=== PATIENT | female | born 1965 | race African-American/Black ===

== ENCOUNTER → 2020-01-22 | Outpatient (CLI) | payer OTHER ==
[~2020-01-22] MED LIST: AZIT250T PO; CEFD300C PO; CLOP75TA57 PO; GABA-585 PO; MECL12.573 PO; PITA4TAB2 PO
--- NOTE | 2020-01-22 16:55 | RAD ---
AP and lateral views study of both knees Clinical indications: Bilateral knee pain Right knee: No acute fracture or dislocation or lytic process is seen. No significant arthritic change is evident. No right knee joint effusion is seen. Left knee: No acute fracture or dislocation or lytic process is seen. There is mild degenerative spurring without joint space narrowing of the medial tibiofemoral joint compartment. IMPRESSION: No acute fracture. Mild primary degenerative osteoarthritis of the medial tibiofemoral joint compartment of the left knee. Electronically signed by: Garry Acosta MD (01/22/2020 4:52 PM) [id number]
== END | disposition home or self-care (01) ==
LOC: DXRAD 10:16
PROVIDERS: ATTEND Anesthesiology Pain Medicine
DX: M17.12 Unilateral primary osteoarthritis, left knee (principal); M25.762 Osteophyte, left knee; M25.561 Pain in right knee
CPT/HCPCS: 73560

== ENCOUNTER 2020-03-10 12:56 | Observation (INO) | payer MEDICAID, OTHER ==
[~2020-03-10] VITALS: Ht 174 cm; Wt 75.2 kg
[2020-03-10] MEDS ORDERED: IV NORMAL SALINE 1,000ML 1,000 ML IV ONE (13:00)
[2020-03-10] MEDS ORDERED: ASPIRIN 325 MG TABLET PO ONE (13:00)
[2020-03-10] MEDS ORDERED: ASPIRIN ENTERIC COATED 325 MG TABLET.DR. PO ONE (13:10)
[2020-03-10 13:18] LABS: BASO % 1 % (0-3); EOS # 0.1 x10^3/uL (0.0-0.7); EOS % 1 % (0-3); HEMATOCRIT 39.3 % (36.0-47.0); HEMOGLOBIN 12.8 g/dL (12.0-15.5); LYMPH % 39 % (24-48); MEAN CORPUSCULAR HEMOGLOBIN 26 pg (25-35); MEAN CORPUSCULAR HGB CONC 33 g/dL (31-37); MEAN CORPUSCULAR VOLUME 81 fL (79-100); MONO # 0.4 x10^3/uL (0.0-1.1); MONO % 6 % (0-9); NEUT # 4.2 x10^3uL (1.8-7.7); NEUT % 54 % (31-73); PLATELET COUNT 324 x10^3/uL (140-400); RED BLOOD COUNT 4.86 x10^6/uL (3.50-5.40); RED CELL DISTRIBUTION WIDTH 14.8 % (11.5-14.5); WHITE BLOOD COUNT 7.7 x10^3/uL (4.0-11.0)
--- NOTE | 2020-03-10 13:25 | PHYS DOC ---
Past History Past Medical History: Anxiety, Depression, High Cholesterol, AZ, Seizure, Stroke Additional Past Medical Histor: PTSD Past Surgical History: No Surgical History Smoking: Quit Less Than 1 Year Alcohol Use: Occasionally (1 beer can/day) Drug Use: Marijuana General Adult EDM: Chief Complaint: CHEST PAIN HPI: HPI: Patient is a 54-year-old female with a history of AZ, stroke, seizures, hypertension, anxiety, and PTSD who presents to the emergency room with chest heaviness that started 30 minutes prior to arrival. The heaviness worsens with deep inspiration and is relieved at rest. Patient states that she was sitting down at the time it started and that it felt similar to her heart attack that occurred this past November. She reports to having dizziness, weakness, and shortness of breath but she denies having any nausea or vomiting. Patient denies having any lower extremity edema or pain. She denies any recent trauma, surgery, or hormonal replacement therapy. Review of Systems: Review of Systems: Constitutional: Denies fever or chills Eyes: Denies change in visual acuity, redness, or eye pain HENT: Denies nasal congestion or sore throat Respiratory: Denies cough; reports shortness of breath Cardiovascular: Reports chest pain; denies palpitations GI: Denies abdominal pain, nausea, vomiting, or diarrhea : Denies dysuria or hematuria Musculoskeletal: Denies back pain or joint pain Integument: Denies rash or skin lesions Neurologic: Denies headache, focal weakness or sensory changes; reports dizzine ss Complete systems were reviewed and found to be within normal limits, except as documented in this note. Heart Score: HEART Score for Chest Pain: HEART Score for Chest Pain Response (Comments) Value History Moderately Suspicious 1 ECG Normal 0 Age >45 - < 65 1 Risk Factors >3 Risk Factors or Hx CAD 2 Troponin < Normal Limit 0 Total 4 Risk Factors: Risk Factors: DM, Current or recent (<one month) smoker, HTN, HLP, family history of CAD, obesity. Risk Scores: Score 0 - 3: 2.5% MACE over next 6 weeks - Discharge Home Score 4 - 6: 20.3% MACE over next 6 weeks - Admit for Clinical Observation Score 7 - 10: 72.7% MACE over next 6 weeks - Early Invasive Strategies Current Medications: Current Meds: Current Medications Medications (Trade) Dose Ordered Sig/Eve Start Time Stop Time Status Last Admin Dose Admin Aspirin (Aspirin Enteric Coated) 325 mg STK-MED ONCE 03/10/20 13:10 03/10/20 13:10 DC Aspirin (Trevor Aspirin) 325 mg 1X ONCE 03/10/20 13:00 03/10/20 13:01 UNV Sodium Chloride 1,000 ml @ 1,000 mls/hr 1X ONCE 03/10/20 13:00 03/10/20 13:59 UNV Physical Exam: PE: Constitutional: Well developed, well nourished, tearful, mildly anxious, non- toxic appearance HENT: Normocephalic, atraumatic Eyes: PERRL, EOMI, conjunctiva normal, no discharge Neck: Normal range of motion, no tenderness, supple Lungs & Thorax: No respiratory distress, equal chest rise and fall Abdomen: Soft, mild tenderness to deep palpation of the left upper and lower quadrants Skin: Warm, dry, no erythema, no rash Back: No tenderness, no CVA tenderness Extremities: No tenderness, ROM intact, no edema Neurologic: Alert and oriented X 3, normal motor function, normal sensory fu nction, no focal deficits noted Psychologic: Affect normal, judgment normal EKG: EKG: EKG at 1253 is normal sinus rhythm with a heart rate of 85, QRS 74, QTc 436, and no ST elevations. Radiology/Procedures: Radiology/Procedures: PROCEDURE: CHEST AP ONLY CHEST AP ONLY History: Chest pain Comparison: None. Findings: Single view of the chest is submitted. Cardiac silhouette is considered within normal limits given technique. There is no dependent pleural fluid or pneumothorax. There is questionable left infrahilar opacity otherwise difficult characterize given the overlying cardiac silhouette. Small nodule at the right lung base is not excluded as seen between the right posterior ninth and 10th ribs. Impression: 1. There could be left infrahilar infiltrate. Small right base nodule is not excluded for which attention on 2 view chest follow-up such as in [address] evaluation recommended. Electronically signed by: Davion Barksdale MD (03/10/2020 2:49 PM) [id number] Course & Med Decision Making: Course & Med Decision Making Pertinent Labs and Imaging studies reviewed. (See chart for details) Patient is a 54-year-old female who presents the emergency room with chest heaviness. Patient's labs are within normal limits and her vitals remained stable throughout her entire stay. Patient was not PERC negative due to her age. D-dimer was ordered which came back negative. Chest x-ray revealed a p ossible left infrahilar infiltrate and a small base nodule could not be excluded. HEART score was 4. Due to her history of AZ and stroke, patient requiring observation admission for further evaluation and treatment. Discussed with Dr. Singh (hospitalist) who is in agreement with admission. Discussed findings and plan with patient, who acknowledges understanding and agreement. Dragon Disclaimer: Dragon Disclaimer: This electronic medical record was generated, in whole or in part, using a voice recognition dictation system. PERC Rule for PE PERC Rule for PE Response (Comments) Value Age > 50: Yes 1 HR > 100: No 0 Sa02 on room air <95%: No 0 Unilateral leg swelling: No 0 Hemoptysis: No 0 Recent surgery or trauma: No 0 Prior PE or DVT: No 0 Hormone use: No 0 Total 1 Departure Departure: Impression: Primary Impression: Chest pain Qualified Codes: R07.9 - Chest pain, unspecified Disposition: ADMITTED INPATIENT Admitting Physician: Alvin Singh Condition: STABLE Referrals: SHAHID SUÁREZ (PCP) Scripts Azithromycin (ZITHROMAX) 250 Mg Tablet 250 MG PO DAILY for ANTI-BIOTIC for 4 Days, #4 TAB 0 Refills Prov: ALVIN SINGH MD 03/11/20 Cefdinir (CEFDINIR) 300 Mg Capsule 1 CAP PO BID for PNEUMONIA for 7 Days, #14 CAP Prov: ALVIN SINGH MD 03/11/20 Justification of Admission: Justification of Admission: Justification of Admission Dx: Yes Comments: Chest pain r/o ACS EVELYN QUEZADA DO Mar 10, 2020 13:25
[2020-03-10 13:32] LABS: CALCIUM 10.6 mg/dL (8.5-10.1); GFR 70.5
[2020-03-10 13:46] LABS: ALBUMIN 4.7 g/dL (3.4-5.0); ALBUMIN/GLOBULIN RATIO 1.3 (1.0-1.7); MAGNESIUM 2.1 mg/dL (1.8-2.4); TOTAL BILIRUBIN 0.7 mg/dL (0.2-1.0); TOTAL PROTEIN 8.4 g/dL (6.4-8.2)
--- NOTE | 2020-03-10 14:51 | RAD ---
CHEST AP ONLY History: Chest pain Comparison: None. Findings: Single view of the chest is submitted. Cardiac silhouette is considered within normal limits given technique. There is no dependent pleural fluid or pneumothorax. There is questionable left infrahilar opacity otherwise difficult characterize given the overlying cardiac silhouette. Small nodule at the right lung base is not excluded as seen between the right posterior ninth and 10th ribs. Impression: 1. There could be left infrahilar infiltrate. Small right base nodule is not excluded for which attention on 2 view chest follow-up such as in [address] evaluation recommended. Electronically signed by: Davion Barksdale MD (03/10/2020 2:49 PM) [id number]
[2020-03-10] MEDS ORDERED: HEPARIN 25,000UTS/250ML PREMIX 250 ML IV PRN (15:15)
[2020-03-10] MEDS ORDERED: ONDANSETRON PF 4 MG/2 ML VIAL. IVP PRN (15:30)
[2020-03-10 16:10] VITALS: BP 131/87
--- NOTE | 2020-03-10 17:38 | EKG ---
[address] [address] Test Date: 2020-03-10 Test Time: 12:53:02 Pat Name: NUHA ODONNELL Department: Room: 121 A Gender: F Scale Tester: TIRSO : 1965 Requested By: EVELYN QUEZADA Order Number: [id number] Reading MD: Andi Howard Measurements Intervals [place] Rate: 85 P: 47 AK: 158 QRS: 24 QRSD: 74 T: 29 QT: 366 QTc: 436 Interpretive Statements SINUS RHYTHM NORMAL ECG RI6.02 No previous ECG available for comparison Electronically Signed On 03-17-2020 13:00:15 CDT by Andi Howard
--- NOTE | 2020-03-10 17:48 | NUR ---
PATIENT IS A 54 Y O F, ARRIVED VIA EMS TO ROOM 121 , VS OBTAINED AND ARE STABLE. PT C/O CHEST PAIN AND WEAKNESS, PATIENT DENIED N/V. PATIENT WAS ORIENTED TO ROOM AND HOSPITAL POLICIES, BELONGINGS INVENTORIED. PATIENT IS CURRENTLY COMFORTABLE IN A BED , MEAL DELIVERED, PATIENT TOLERATED HER DIET WELL. WILL CONTINUE TO MONITOR.
--- NOTE | 2020-03-10 17:59 | NUR ---
CONSULT FOR SAMPLES AND REPAIRS PREPARER CALLED.
[2020-03-10] MEDS ORDERED: AZITHROMYCIN 250 MG TABLET. PO ONE (18:00)
--- NOTE | 2020-03-10 18:20 | HP ---
ADMIT DATE: 03/10/2020 HISTORY OF PRESENT ILLNESS: The patient is a 54-year-old -Russian female patient, who came to the Emergency Room complaining of retrosternal chest pain, described as somebody sitting on her chest, it started about 30 minutes prior to arrival. The heaviness worsens with deep inspiration, is relieved with rest. She stated she was sitting down at that time it started. This felt similar to her heart attack that occurred about last November. She also started having dizziness, weakness, and shortness of breath and also diaphoresis. Denied any nausea or vomiting. Denied having any lower extremity edema or pain. Denied any recent trauma or surgery. She was extensively investigated and in fact her white cell count was normal. Chemistry was mostly unremarkable and her D-dimer was 0.33. She has had EKG done, which showed that she was in sinus rhythm with a heart rate of 85 beats per minute with the QRS duration of 74, corrected QT interval of [address] segment elevation. Her chest x-ray showed there could be a left infrahilar infiltrate, small right base nodule is not excluded for which attention on 2-view chest follow up such as in [address] evaluation is recommended. Her first set of cardiac enzymes showed troponin to be less than 0.017 and therefore, the patient was admitted to do 2 more sets of cardiac enzyme, check her fasting lipid profile and consult the supervisor aircraft cleaning. PAST MEDICAL HISTORY: Significant for cerebrovascular accident and seizure disorder. She has also claimed that she has myocardial infarction, hyperlipidemia, posttraumatic stress disorder and depression. PAST SURGICAL HISTORY: Not clear, but it seems that she has mitral valve replacement or mitral valve annuloplasty. She also has total abdominal hysterectomy without oophorectomy. ALLERGIES: She has no known drug allergies. MEDICATIONS: She is currently on gabapentin 300 mg 3 times a day, meclizine 25 mg 3 times a day. She is on Cymbalta 30 mg once a day. She is on Plavix 75 mg once a day and aspirin 81 mg once a day. She takes also allergy pill. FAMILY HISTORY: She has 4 brothers and 3 sisters. Her younger brother has diabetes mellitus and her older sister of cancer, but does not know the nature of cancer. The other 2 sisters are healthy. Her father in his 70s with COPD and glaucoma. Mother in her late 60s one-week after she has had her cholecystectomy done. SOCIAL HISTORY: She is , has 4 children. She is an ex-smoker, quit a year ago. She smoked weed. She drinks beer a day. 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 REVIEW OF SYSTEMS: As per history of present illness. PHYSICAL EXAMINATION: GENERAL: On arrival to the Emergency Room, she looked well and was clearly in no apparent respiratory distress. No pallor, jaundice, cyanosis or thyromegaly. No jugular venous distention. No limb edema. VITAL SIGNS: Her heart rate was 98, blood pressure was 166/96, temperature was 98.3, respiratory rate was 24, and oxygen saturation was 98% on room air. HEAD, EYES, EARS, NOSE AND THROAT: Showed normocephalic, atraumatic. NECK: Supple. CARDIAC: Normal first and second heart sounds. No gallop or murmur. CHEST: Clear to auscultation. No crepitation or rhonchi. ABDOMEN: Distended, soft, nontender. NEUROLOGIC: She is awake, alert, responding appropriately. All cranial nerves are intact. She stated that she does have residual weakness in the right side. She usually ambulates with a cane. LABORATORY DATA: Her white cell count was 7700, hemoglobin 12.8, hematocrit 39, MCV 81 and platelet count 324,000. Serum sodium was 139, potassium 4, chloride 103, bicarbonate 22, anion gap of 14, BUN 12, creatinine 1, estimated GFR was 70 mL per minute. Her glucose 115, calcium was high at 10.6, magnesium was 2.1. Total bilirubin, AST, ALT, alkaline phosphatase were normal. Total protein was 8.4, albumin was 4.7. Lipase was 81. First set of cardiac enzymes showed troponin to be less than 0.017. In summary, this is a 54-year-old -Russian female patient, who came in with chest pain, somewhat atypical. She does have risk factors including that she is an ex-smoker, she has hyperlipidemia and she has had a stroke before. My plan is to do 2 more sets of cardiac enzyme and check her fasting lipid profile tomorrow and also consult the Cardiology team for further evaluation and treatment. As far as her chest x-ray, it did show that there is a possibility of infiltrate and I will start her on IV antibiotic for possible healthcare-associated pneumonia and we will decide on further management accordingly. KODAK IVORY MD DR: JUAN/isabella JOB#: [id number] / [id number]
[2020-03-10 20:43] VITALS: BP 116/77
[2020-03-10] MEDS ORDERED: FLU VACC QS 2020-21(6MOS+)/PF 0.5 ML SYRINGE. VAX IM ONE (21:00)
[2020-03-10 22:26] VITALS: BP 112/75
[2020-03-10 22:45] LABS: BILIRUBIN,URINE NEG (NEG); CLARITY,URINE CLEAR; COLOR,URINE YELLOW; GLUCOSE,URINE NEG (NEG)
[2020-03-10 22:46] LABS: NITRITE,URINE NEG (NEG); UROBILINOGEN,URINE 0.2 mg/dL (0.2 mg/dL)
[2020-03-10 22:48] LABS: BACTERIA,URINE 0 /HPF (0-FEW); RBC,URINE RARE /HPF (0-2); WBC,URINE RARE /HPF (0-4)
[2020-03-11 05:06] VITALS: BP 125/84
--- NOTE | 2020-03-11 08:25 | PDOC2 ---
CARDIAC CONSULT DATE OF CONSULT DOS: DATE: 03/11/20 TIME: 08:19 REASON FOR CONSULT Reason for Consult Chest pain REFERRING PHYSICIAN Referring Physician Dr. Ledesma SOURCE Source: Chart review, Patient HPI History of Present Illness This is a 54 yo female who presented secondary to chest pain. Patient reports she just didn't feel well yesterday. Was weak, tired. Had cramping pain in her chest. [place] slightly SOA. Was worse with any movement. No dizziness, diap horesis, palpitations, or nausea/vomiting. Report having "open valve" and underwent "valve closure procedure" at age 17. 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 No recent cardiac workup. Reports having Seizure, stroke, and PA last November. Was treaded at [facility]. Did not undergo ischemic evaluation at that time. PAST MEDICAL HISTORY Cardiovascular: HTN, PA CENTRAL NERVOUS SYSTEM: CVA, Seizure Psych: Depression PAST SURGICAL HISTORY Past Surgical History: Hysterectomy, Other (heart surgery; "valve closure" at age 17. details unclear ) FAMILY HISTORY Family History: Diabetes, Hypertension SOCIAL HISTORY Smoke: Quit (1 year ago) ALCOHOL: none Drugs: Marijuana Lives: with Family CURRENT MEDICATIONS Current Medications Current Medications Aspirin (Trevor Aspirin) 325 mg 1X ONCE PO Last administered on 03/10/20at 13:00; Start 03/10/20 at 13:00; Stop 03/10/20 at 13:17; Status DC Sodium Chloride 1,000 ml @ 1,000 mls/hr 1X ONCE IV Last administered on 03/10/20at 13:00; Start 03/10/20 at 13:00; Stop 03/10/20 at 13:59; Status DC Aspirin (Aspirin Enteric Coated) 325 mg STK-MED ONCE PO ; Start 03/10/20 at 13:10; Stop 03/10/20 at 13:10; Status DC Heparin Sodium/ Dextrose 250 ml @ 0 mls/hr CONT PRN IV SEE ADMIN INSTRUCTIONS; Start 03/10/20 at 15:15; Status Cancel Ondansetron HCl (Zofran) 4 mg PRN Q4HRS PRN IVP NAUSEA/VOMITING; Start 03/10/20 at 15:30; Stop 03/11/20 at 15:29 Fentanyl Citrate (Fentanyl 2ml Vial) 50 mcg PRN Q2HR PRN IVP PAIN Last administered on 03/10/20at 22:28; Start 03/10/20 at 15:30; Stop 03/11/20 at 15:29 Influenza Virus Vaccine Quadrival (Fluzone Quad Syringe) 0.5 ml ONCE ONCE VAX IM ; Start 03/10/20 at 21:00; Stop 03/10/20 at 21:04; Status DC Ceftriaxone Sodium 1 gm/ Sodium Chloride 50 ml @ 100 mls/hr Q24H IV Last administered on 03/10/20at 18:30; Start 03/10/20 at 18:00 Azithromycin (Zithromax) 500 mg 1X ONCE PO Last administered on 03/10/20at 18:31; Start 03/10/20 at 18:00; Stop 03/10/20 at 18:02; Status DC Influenza Virus Vaccine Quadrival (Fluzone Quad Syringe) 0.5 ml ONCE ONCE VAX IM ; Start 03/11/20 at 09:00; Stop 03/11/20 at 09:01 ALLERGIES Allergies: Coded Allergies: No Known Drug Allergies (Unverified , 03/10/20) ROS Review of Systems 14 point ROS conducted with pertinent positives noted above in HPI PHYSICAL EXAM General: Alert, Oriented X3, Cooperative, No acute distress HEENT: Atraumatic, Mucous membr. moist/pink Lungs: Clear to auscultation Heart: Regular rate Abdomen: Soft, No tenderness Extremities: No edema, Normal pulses Skin: No breakdown Neuro: Normal speech, Sensation intact Psych/Mental Status: Mental status NL, Mood NL MUSCULOSKELETAL: Osteoarthritic changes both hands VITALS Vital Signs Vital Signs Date Time Temp Pulse Resp B/P (MAP) Pulse Ox O2 Delivery O2 Flow Rate FiO2 03/11/20 05:06 99.0 83 20 125/84 (98) 97 Room Air LABS LABS Laboratory Tests Test 03/10/20 13:00 03/10/20 18:24 03/10/20 21:28 03/10/20 22:30 White Blood Count 7.7 x10^3/uL (4.0-11.0) Red Blood Count 4.86 x10^6/uL (3.50-5.40) Hemoglobin 12.8 g/dL (12.0-15.5) Hematocrit 39.3 % (36.0-47.0) Mean Corpuscular Volume 81 fL (79-100) Mean Corpuscular Hemoglobin 26 pg (25-35) Mean Corpuscular Hemoglobin Concent 33 g/dL (31-37) Red Cell Distribution Width 14.8 % (11.5-14.5) Platelet Count 324 x10^3/uL (140-400) Neutrophils (%) (Auto) 54 % (31-73) Lymphocytes (%) (Auto) 39 % (24-48) Monocytes (%) (Auto) 6 % (0-9) Eosinophils (%) (Auto) 1 % (0-3) Basophils (%) (Auto) 1 % (0-3) Neutrophils # (Auto) 4.2 x10^3uL (1.8-7.7) Lymphocytes # (Auto) 3.0 x10^3/uL (1.0-4.8) Monocytes # (Auto) 0.4 x10^3/uL (0.0-1.1) Eosinophils # (Auto) 0.1 x10^3/uL (0.0-0.7) Basophils # (Auto) 0.0 x10^3/uL (0.0-0.2) Prothrombin Time 10.0 SEC (9.4-11.4) Prothromb Time International Ratio 1.0 (0.9-1.1) Activated Partial Thromboplast Time < 21 SEC (23-33) D-Dimer (Rosalia) 0.33 mg/L (0.00-0.50) Sodium Level 139 mmol/L (136-145) Potassium Level 4.0 mmol/L (3.5-5.1) Chloride Level 103 mmol/L (98-107) Carbon Dioxide Level 22 mmol/L (21-32) Anion Gap 14 (6-14) Blood Urea Nitrogen 12 mg/dL (7-20) Creatinine 1.0 mg/dL (0.6-1.0) Estimated GFR (Cockcroft-Gault) 70.5 BUN/Creatinine Ratio 12 (6-20) Glucose Level 115 mg/dL (70-99) Calcium Level 10.6 mg/dL (8.5-10.1) Magnesium Level 2.1 mg/dL (1.8-2.4) Total Bilirubin 0.7 mg/dL (0.2-1.0) Aspartate Amino Transf (AST/SGOT) 16 U/L (15-37) Alanine Aminotransferase (ALT/SGPT) 27 U/L (14-59) Alkaline Phosphatase 99 U/L (46-116) Creatine Kinase 265 U/L (26-192) Creatine Kinase MB (Mass) 1.5 ng/mL (0.0-3.6) Creatine Kinase MB Relative Index 0.6 % (0-4) Troponin I Quantitative < 0.017 ng/mL (0-0.055) < 0.017 ng/mL (0-0.055) < 0.017 ng/mL (0-0.055) WG-Chm-Z-Type Natriuretic Peptide 25 pg/mL (0-124) Total Protein 8.4 g/dL (6.4-8.2) Albumin 4.7 g/dL (3.4-5.0) Albumin/Globulin Ratio 1.3 (1.0-1.7) Lipase 81 U/L (73-393) Urine Collection Type Unknown Urine Color Yellow Urine Clarity Clear Urine pH 5.5 Urine Specific [place] 1.025 Urine Protein Neg (NEG-TRACE) Urine Glucose (UA) Neg mg/dL (NEG) Urine Ketones (Stick) Neg mg/dL (NEG) Urine Blood Trace (NEG) Urine Nitrite Neg (NEG) Urine Bilirubin Neg (NEG) Urine Urobilinogen Dipstick 0.2 mg/dL (0.2 mg/dL) Urine Leukocyte Esterase Neg (NEG) Urine RBC Rare /HPF (0-2) Urine WBC Rare /HPF (0-4) Urine Bacteria 0 /HPF (0-FEW) ASSESSMENT/PLAN Assessment/Plan 1. Chest pain, atypical; AMI ruled out. 2. Hypertension; controlled 3. H/o CVA, seizure 4. Depression, anxiety 5. Tobaccoism; in remission 6. Marijuana use Recommendations Lipids Continue Plavix, statin therapy Outpatient echocardiogram Given risk factors, will arranged outpatient stress test F/u in our office with Dr. Hager as scheduled. PARTH STRONG APRN Mar 11, 2020 08:25
[2020-03-11] MEDS ORDERED: FLU VACC QS 2020-21(6MOS+)/PF 0.5 ML SYRINGE. VAX IM ONE (09:00)
[2020-03-11] MEDS ORDERED: MECL12.573 PO (09:56)
[2020-03-11] MEDS ORDERED: PITA4TAB2 PO (10:00)
[2020-03-11] MEDS ORDERED: GABA-585 PO (10:00)
[2020-03-11] MEDS ORDERED: CLOP75TA57 PO (10:00)
[2020-03-11] MEDS ORDERED: GABAPENTIN 100 MG CAPSULE. PO SCH (10:20)
[2020-03-11] MEDS ORDERED: MECLIZINE 12.5 MG TABLET. PO SCH (10:20)
[2020-03-11] MEDS ORDERED: CLOPIDOGREL BISULFATE 75 MG TABLET PO SCH (10:25)
[2020-03-11] MEDS ORDERED: PITAVASTATIN CALCIUM PO SCH (10:30)
[2020-03-11 11:20] VITALS: BP 113/73
[2020-03-11] MEDS ORDERED: CEFD300C PO (14:25)
[2020-03-11] MEDS ORDERED: AZIT250T PO (14:25)
[2020-03-11 15:30] VITALS: BP 118/81
--- NOTE | 2020-03-11 15:35 | NUR ---
PATIENT IS DISCHARGED HOME, DISCHARGE INSTRUCTION AND PRESCRIBED MEDICATIONS RESEWED WITH PATIENT , PT VERBALIZED UNDERSTANDING. PATIENT LEFT ROOM 121 VIA W/C . PATIENT IS TAKEN HOME BY FAMILY MEMBER VIA PERSONAL VEHICLE.
--- NOTE | 2020-03-11 15:55 | DS ---
DATE OF DISCHARGE: HOSPITAL COURSE: The patient is a 54-year-old -[place] female patient who came complaining of chest pain that is fairly atypical, described it as heaviness, worsens with deep inspiration, relieved by rest. She was basically evaluated in the Emergency Room, had EKG, which showed that she was in sinus rhythm at a rate of 85 beats per minute, QRS duration of 74. Her first set of cardiac enzyme was less than 0.017. She was admitted and had a total of 3 sets of cardiac enzyme, all of them showed troponin to be less than 0.017. She was seen in consultation by the cardiology team and basically as the myocardial infarction was ruled out, she was discharged home to follow with the cardiology team for an outpatient echocardiogram as well as outpatient stress test. On admission, she was also noted on the chest x-ray that she has also left infrahilar infiltrate and therefore I did start her on IV antibiotic in the form of Rocephin and Zithromax. PHYSICAL EXAMINATION: GENERAL: When I saw her today, she looked well and was clearly in no apparent respiratory distress. She was slightly pale. No jaundice, cyanosis, or thyromegaly. No jugular venous distention. No limb edema. VITAL SIGNS: Her heart rate was 82, blood pressure was 113/73, temperature was 99.1, respiratory rate was 20, and oxygen saturation was 93%. The rest of clinical exam is stable. LABORATORY DATA: Showed that her 3 sets of cardiac enzymes were negative and acute myocardial infarctions ruled out. DISCHARGE MEDICATIONS: She was discharged home to continue on Zithromax 250 mg once a day for 4 more days and cefdinir 300 mg twice a day for 7 days, Plavix 75 mg once a day, gabapentin 100 mg 3 times a day, meclizine 12.5 mg 3 times a day, and Livalo 4 mg daily. She was also given a prescription for hydrocodone 5/325 one tablet every 6 hours. FOLLOWUP: The patient should follow with Dr. Hager's office for outpatient echocardiogram and also outpatient stress test. FINAL DISCHARGE DIAGNOSES: Hypertension, cerebrovascular accident, seizure disorder, and depression. KODAK IVORY MD DR: JUAN/isabella JOB#: [id number] / [id number]
== END 2020-03-11 15:30 | disposition home or self-care (01) ==
LOC: ER 12:56 → 1 SOUTH 15:15
PROVIDERS: ADMIT Internal Medicine; ATTEND Internal Medicine
DX: R07.89 Other chest pain (principal); R56.9 Unspecified convulsions; I25.2 Old myocardial infarction; E78.5 Hyperlipidemia, unspecified; F41.9 Anxiety disorder, unspecified; E78.00 Pure hypercholesterolemia, unspecified; F32.9 Major depressive disorder, single episode, unspecified; F12.90 Cannabis use, unspecified, uncomplicated; F43.10 Post-traumatic stress disorder, unspecified; Z86.73 Personal history of transient ischemic attack (TIA), and cerebral infarction without residual deficits; Z90.710 Acquired absence of both cervix and uterus; Z79.02 Long term (current) use of antithrombotics/antiplatelets; Z79.82 Long term (current) use of aspirin; Z87.891 Personal history of nicotine dependence
CPT/HCPCS: 36415; 71045; 80053; 80061; 81001; 82553; 83690; 83735; 83880; 84484; 85025; 85379; 85610; 85730; 93005; 96361; 96365; 96366; 96375; 96376; 99285; G0378; J0456; J0696; J3010; J7030; J8597; G0379

== ENCOUNTER → 2020-04-20 | Outpatient (CLI) | payer MEDICAID ==
[2020-04-20] MEDS: REGADENOSON 0.4 MG/5 ML DISP.SYRIN. IV ONE (08:15)
--- NOTE | 2020-04-20 15:37 | CARD ---
MR#: [id number] Date of Study: 04/20/2020 Ordering Physician: SEE SALDANA, Referring Physician: SEE SALDANA, Tech: Yudy Singer APPROVED REPORT EXAM: Two-dimensional and M-mode echocardiogram with Doppler and color Doppler. Other Information Quality : AverageHR: 89bpm INDICATION Murmur RISK FACTORS Hyperlipidemia previous smoker 2D DIMENSIONS RVDd3.7 (2.9-3.5cm)Left Atrium(2D)3.0 (1.6-4.0cm) IVSd1.3 (0.7-1.1cm)Aortic Root(2D)3.2 (2.0-3.7cm) LVDd4.5 (3.9-5.9cm)LVOT Diameter1.9 (1.8-2.4cm) PWd0.9 (0.7-1.1cm)LVDs2.7 (2.5-4.0cm) FS (%) 39.9 %SV66.9 ml Aortic Valve AoV Peak Ben.125.0cm/sAoV VTI24.2cm AO Peak GR.6.2mmHgLVOT Peak Ben.93.7cm/s LVOT VTI 17.93cmAO Mean GR.3mmHg CHRISTEN (VMAX)2.96yp1VXN (VTI)2.15cm2 Mitral Valve MV E Rlpkjhjg99.6cm/sMV DECEL EIRT055gt MV A Azoffjtw43.9cm/sE/A Ratio0.8 Pulmonary Valve PV Peak Iakryyuf87.9cm/sPV Peak Grad.2mmHg Tricuspid Valve TR P. Uldzzuun393sv/sRAP AMMDBEAI3siXt TR Peak Gr.32mwDjIRQQ45hqXu Pulmonary Vein S1 Ztunxdpd19.0cm/sD2 Bshsjjla12.0cm/s LEFT VENTRICLE The left ventricle is normal size. There is borderline to mild concentric left ventricular hypertroph y. The left ventricular systolic function is normal and the ejection fraction is within normal range. The Ejection Fraction is 55-60%. There is normal LV segmental wall motion. Transmitral Doppler flow pattern is Grade I-abnormal relaxation pattern. RIGHT VENTRICLE The right ventricle is normal size. There is normal right ventricular wall thickness. The right ventr icular systolic function is normal. ATRIA The left atrium size is normal. The right atrium size is normal. The interatrial septum is intact wit h no evidence for an atrial septal defect or patent foramen ovale as noted on 2-D or Doppler imaging. AORTIC VALVE The aortic valve is thickened but opens well. Doppler and Color Flow revealed no significant aortic r egurgitation. There is no significant aortic valvular stenosis. Calculated aortic valve area is 2.1 c m2 with maximum pressure gradient of 6 mmHg and mean pressure gradient of 3 mmHg. MITRAL VALVE The mitral valve is normal in structure and function. There is no evidence of mitral valve prolapse. There is no mitral valve stenosis. Doppler and Color-flow revealed trace mitral regurgitation. TRICUSPID VALVE The tricuspid valve is normal in structure and function. Doppler and Color Flow revealed trace tricus pid regurgitation with an estimated PAP of 18 mmHg. There is no tricuspid valve stenosis. PULMONIC VALVE The pulmonic valve is not well visualized. Doppler and Color Flow revealed trace pulmonic valvular re gurgitation. GREAT VESSELS The aortic root is normal in size. The ascending aorta is normal in size. The IVC is normal in size a nd collapses >50% with inspiration. PERICARDIAL EFFUSION There is no evidence of significant pericardial effusion. Critical Notification Critical Value: No <Conclusion> The left ventricle is normal size. The left ventricular systolic function is normal and the ejection fraction is within normal range. The Ejection Fraction is 55-60%. There is borderline to mild concentric left ventricular hypertrophy. Doppler and Color Flow revealed no significant aortic regurgitation. There is no significant aortic valvular stenosis. Doppler and Color-flow revealed trace mitral regurgitation. Doppler and Color Flow revealed trace tricuspid regurgitation with an estimated PAP of 18 mmHg. Signed by : See Saldana MD Electronically Approved : 04/20/2020 15:36:47
--- NOTE | 2020-04-20 17:17 | RAD ---
MR#: [id number] Date of Study: 04/20/2020 Ordering Physician: SEE SALDANA, Referring Physician: BETH POLLOCK Tech: RT Hanny (R) (N) APPROVED REPORT Test Type: Pharmacological Stress Nurse/Tech: Ray Stratton/ Caitie Mc Test Indications: CP, Cardiac History: See Electronic Medical Record Medications: See EHR Resting Heart Rate: 82 bpm Resting Blood Pressure: 115/73mmHg Pharm. Details Pharmacologic stress testing was performed using 0.4mg per 5ml of regadenoson given intravenously ove r 7-10 seconds. Stress Symptoms Dyspnea, headache POST EXERCISE Reason for Termination: Infusion complete Target HR: No Max HR: 115 bpm Max Blood Pressure: 119/67mmHg Blood Pressure response to exercise: Normal blood pressure response during stress. Heart Rate response to exercise: Increased Chest Pain: No. Arrhythmia: No. ST Change: No. INTERPRETATION Stress EKG Conclusion: The resting EKG shows a sinus rhythm with a borderline septal Q wave. The stress EKG shows no significant changes from baseline. No EKG evidence of stress-induced ischemia. Imaging Protocol IMAGE PROTOCOL: Rest Tc-99m/stress Tc-99m 1 day Rest: Stress: Viability: Radiopharm.Tc99m QoakervwqLa62l Sestamibi Stwe06mVg 32mCi Duration 15min. 15min. Img Date 04/20/2020 04/20/2020 Inj-Img Lcts62wpi. 60min. Rest Admin Site:IV - Left AntecubitalAdministrator: RT Hanny (R)(N) Stress Admin Site: IV - Left AntecubitalAdministrator: RT Hanny (R)(N) STRESS DATA End Diast. Vol.87.0mlAv. Heart Rate79.0bpm End Syst. Vol.28.0mlCO Index BSA0.0L/min Myocardial Mtqr931.0gEject. Igtfbxys12.0% Stress Rates Pk. Fill Rate2.92EDV/secLVtime Pk. Fill 105.84msec Pk. Empty Rate4.68ESV/secLVtime Pk. Nzsig559.03msec 1/3 Pk. Fill1.84EDV/sec Stress Scores Regional WT0.00Summed WT7.00 Regional WM0.00Summed WM0.00 LV Perfusion The stress scans show no significant defects. The rest scans showed no significant defects. Nuclear imaging shows no reversible ischemia or infarct. Wall Motion Left ventricular systolic function is normal with no regional wall motion abnormalities and an ejecti on fraction of 66%. LV Perf. Quant 17 Seg. SSS1.00 17 Seg. SRS0.00 17 Seg. SDS1.00 Stress Defect Extent (% LAD)0.00Rest Defect Extent (% LAD)0.00Rev. Defect Extent (% LAD)0.00 Stress Defect Extent (% LCX) 0.00Rest Defect Extent (% LCX)0.00Rev. Defect Extent (% LCX)0.00 Stress Defect Extent (% RCA)0.00Rest Defect Extent (% RCA)0.00Rev. Defect Extent (% RCA)0.00 Stress Defect Extent (% MARY)0.00Rest Defect Extent (% MARY)0.00Rev. Defect Extent (% MARY)0.00 Conclusion 1. No EKG evidence of stress-induced ischemia. 2. Nuclear imaging shows no reversible ischemia or infarct. 3. Normal left ventricular systolic function with an ejection fraction of 66%. 4. Low risk Lexiscan nuclear stress test. Signed by : See Saldana MD Electronically Approved : 04/20/2020 17:17:17
== END ==
LOC: NM 08:41
PROVIDERS: ATTEND Internal Medicine Cardiovascular Disease
DX: I51.7 Cardiomegaly (principal); Z87.891 Personal history of nicotine dependence
CPT/HCPCS: 78452; 93017; 93306; A9500; J2785

== ENCOUNTER → 2020-07-28 | Outpatient (CLI) | payer MEDICAID ==
[~2020-07-28] MED LIST changes: -MECL12.573 PO; +MECL12.574 PO
--- NOTE | 2020-07-28 16:48 | RAD ---
DATE: 07/28/2020 EXAM: DIGITAL DIAGNOSTIC BILATERAL, BREAST LEFT HISTORY: Palpable abnormality in the medial left breast at 11:00 2 cm from nipple. COMPARISON: None. Baseline exam. This study was interpreted with the benefit of Computerized Aided Detection (CAD). Breast Density: SCATTERED The breast parenchyma shows scattered fibroglandular densities. Breast parenchyma level B. FINDINGS: MAMMOGRAM: A palpable marker is at approximately 9:00 middle depth left breast. There is no definite underlying abnormality on full-field or Spot compression views in this region. No suspicious mass, architectural distortion, or calcifications in either breast. ULTRASOUND: The left breast was scanned from 9:00 to 12:00. There is an ovoid hypoechoic mass with smooth margins at 10:00, 5 cm from the nipple. This measures 5 x 2 mm. Additional more anechoic circumscribed ovoid mass at 12:00, 3 cm from the nipple measures 4 x 2 mm. Both are parallel in orientation without shadowing. IMPRESSION: Probably benign hypoechoic masses in the left breast at 10:00 and 12:00, likely complicated cysts. One of these may correlate with the palpable abnormality. Recommend 6 month follow-up ultrasound of the left breast. BI-RADS CATEGORY: 3 PROBABLY BENIGN FINDING(S)-SHORT INTERVAL FOLLOW-UP SUGGESTED RECOMMENDED FOLLOW-UP: 6M 6 MONTH FOLLOW-UP . PQRS compliance statement: Patient information was entered into a reminder system with a target due date for the next mammogram. Mammography is a sensitive method for finding small breast cancers, but it does not detect them all and is not a substitute for careful clinical examination. A negative mammogram does not negate a clinically suspicious finding and should not result in delay in biopsying a clinically suspicious abnormality. "Our facility is accredited by the [employer] Mammography Program."
== END ==
LOC: MAMMO 13:50
PROVIDERS: ATTEND Nurse Practitioner Family
DX: N63.20 Unspecified lump in the left breast, unspecified quadrant (principal)
CPT/HCPCS: 76641; 77066

== ENCOUNTER → 2020-10-11 | Outpatient (CLI) | payer MEDICAID ==
[~2020-10-11] MED LIST changes: -MECL12.574 PO; +MECL12.582 PO
--- NOTE | 2020-10-11 11:02 | RAD ---
EXAM: Right hip, 2 views. HISTORY: Pain. COMPARISON: None. FINDINGS: 2 views of the right hip are obtained. There is no fracture, dislocation or subluxation. Th e femoral head is normal in configuration. IMPRESSION: No acute osseous finding. Electronically signed by: Pati Davey MD (10/11/2020 11:00 AM) [id number]
== END ==
LOC: RAD 10:26
PROVIDERS: ATTEND Nurse Practitioner Family
DX: M25.551 Pain in right hip (principal)
CPT/HCPCS: 73502

== ENCOUNTER 2021-01-31 16:42 | Emergency (ER) | payer MEDICAID ==
[~2021-01-31] VITALS: Ht 174 cm; Wt 75.2 kg
[2021-01-31] MEDS ORDERED: ONDANSETRON PF 4 MG/2 ML VIAL. IVP ONE (17:30)
[2021-01-31] MEDS ORDERED: IV NORMAL SALINE 1,000ML 1,000 ML IV ONE (17:30)
[2021-01-31] MEDS ORDERED: MORPHINE SULFATE 4 MG/ML DISP.SYRIN. IV ONE (17:30)
--- NOTE | 2021-01-31 17:31 | PHYS DOC ---
Past History Past Medical History: Anxiety, Depression, High Cholesterol, GA, Seizure, Stroke Additional Past Medical Histor: PTSD Past Surgical History: No Surgical History, Coronary Bypass Surgery Smoking: Quit Less Than 1 Year Alcohol Use: Heavy Additional Alcohol Information: daily Drug Use: Marijuana General Adult EDM: Chief Complaint: CHEST PAIN HPI: HPI: Patient is a 55-year-old female who presents with chest pain, weakness and a headache for 2 days. Patient states "1 year ago I had a stroke and also a heart attack and they put me on blood thinners". Denies history of migraines. Denies recent illness or fever. Review of Systems: Review of Systems: Constitutional: Denies fever or chills Eyes: Denies change in visual acuity HENT: Denies nasal congestion or sore throat Respiratory: Denies cough or shortness of breath Cardiovascular: Reports chest pain GI: Denies abdominal pain, nausea, vomiting, bloody stools or diarrhea : Denies dysuria Musculoskeletal: Denies back pain or joint pain Integument: Denies rash Neurologic: Reports headache. Denies focal weakness or sensory changes Endocrine: Denies polyuria or polydipsia Lymphatic: Denies swollen glands Psychiatric: Denies depression or anxiety Allergies: Allergies: Allergies Coded Allergies Type Severity Reaction Last Updated Verified No Known Drug Allergies 03/10/20 No Physical Exam: PE: Constitutional: Well developed, well nourished, no acute distress, non-toxic appearance. [] HENT: Normocephalic, atraumatic, bilateral external ears normal, oropharynx moist, no oral exudates, nose normal. [] Eyes: PERRLA, EOMI, conjunctiva normal, no discharge. [] Neck: Normal range of motion, no tenderness, supple, no stridor. [] Cardiovascular: Sinus tachycardia Lungs & Thorax: Bilateral breath sounds clear to auscultation [] Abdomen: Bowel sounds normal, soft, no tenderness, no masses, no pulsatile kandice s. [] Skin: Warm, dry, no erythema, no rash. [] Back: No tenderness, no CVA tenderness. [] Extremities: No tenderness, no cyanosis, no clubbing, ROM intact, no edema. [] Neurologic: Alert and oriented X 3, normal motor function, normal sensory function, no focal deficits noted. [] Psychologic: Affect normal, judgement normal, mood normal. [] Current Patient Data: Vital Signs: Vital Signs Date Time Temp Pulse Resp B/P (MAP) Pulse Ox O2 Delivery O2 Flow Rate FiO2 01/31/21 16:55 97.9 102 16 117/85 94 Room Air EKG: EKG: Sinus tachycardia. 105 bpm. [] Radiology/Procedures: Radiology/Procedures: []CT head without contrast dated 01/31/2021 6:44 PM Comparison: None CLINICAL INDICATION: Headache TECHNIQUE: Contiguous axial imaging of the head was performed from skull base to vertex. One or more of the following individualized dose reduction techniques were utilized for this examination: 1. Automated exposure control 2. Adjustment of the mA and/or kV according to patient size 3. Use of iterative reconstruction technique. FINDINGS: Ventricles and sulci are within normal limits for age. No midline shift or mass effect. Brain parenchyma is of normal attenuation. No hemorrhage or extra-axial collection. Posterior fossa and brainstem unremarkable. Visualized paranasal sinuses and mastoid air cells are clear. No apparent calvarial abnormality. IMPRESSION: No evidence of acute intracranial abnormality. Electronically signed by: Luciano Hughes MD (01/31/2021 6:44 PM) PUSHPA Chest PA and lateral: Reason for examination: Chest pain. The heart size is normal. Mediastinum is unremarkable. Lung moreira show mild increase in lung markings in the mid to lower right lung field. Mild infiltrates cannot be excluded. No pleural effusions or pneumothorax are seen. No acute bony abnormalities are seen. Impression: Increased markings in the mid to lower right lung field. Cannot exclude mild infiltrates. Recommend clinical correlation and follow-up. Electronically signed by: Madison Holbrook MD (01/31/2021 7:40 PM) [facility] Heart Score: C/O Chest Pain: Yes HEART Score for Chest Pain: HEART Score for Chest Pain Response (Comments) Value History Moderately Suspicious 1 ECG Normal 0 Age >45 - < 65 1 Risk Factors 1 or 2 Risk Factors 1 Troponin < Normal Limit 0 Total 3 Risk Factors: Risk Factors: DM, Current or recent (<one month) smoker, HTN, HLP, family history of CAD, obesity. Risk Scores: Score 0 - 3: 2.5% MACE over next 6 weeks - Discharge Home Score 4 - 6: 20.3% MACE over next 6 weeks - Admit for Clinical Observation Score 7 - 10: 72.7% MACE over next 6 weeks - Early Invasive Strategies Course & Med Decision Making: Course & Med Decision Making Pertinent Labs and Imaging studies reviewed. (See chart for details) [] 55-year-old female presents with chest pain, weakness and headache for 2 days. Patient has a history of CVA and GA 1 year ago. Patient is currently on blood thinners. EKGs showed sinus tachycardia. Basic labs, CT head and D-dimer ordered. All labs unremarkable. CT unremarkable. D-dimer is negative. Heart score of three. Discussed results with patient. Patient given strict return precautions. Patient advised to follow-up with PCP tomorrow for further management. Patient is hemodynamically stable upon disposition. Dragon Disclaimer: All Def Digital Disclaimer: This electronic medical record was generated, in whole or in part, using a voice recognition dictation system. Departure Departure: Impression: Primary Impression: Chest pain Qualified Codes: R07.9 - Chest pain, unspecified Disposition: HOME / SELF CARE / HOMELESS Condition: STABLE Referrals: PCP,NO (PCP) Patient Instructions: Chest Pain (Nonspecific), [facility]-cp-[facility] Additional Instructions: You were seen in the emergency room for chest pain and headache. All of your labs are unremarkable. Your CT was negative. Continue taking ibuprofen and Tylenol for discomfort. Please make an appointment with your PCP in the morning for follow-up. Return to the emergency room for worsening symptoms or concerns. EMERGENCY DEPARTMENT GENERAL DISCHARGE INSTRUCTIONS Thank you for coming to [facility] (ED) today and trusting us with you care. We trust that you had a positivie experience in our Emergency Department. If you wish to speak to the department management, you may call the director at [phone]. YOUR FOLLOW UP INSTRUCTIONS ARE FOLLOWS: 1. Do you have a private Doctor? If you do not have a private doctor, please ask for a resource list of physicians or clinics that may be able to assist you with follow up care. 2. The Emergency Physician has interpreted your x-rays. The X-Ray specialist will also review them. If there is a change in the findings, you will be notified in 48 hours when at all possible. 3. A lab test or culture has been done, your results will be reviewed and you will be notified if you need a change in treatment. ADDITIONAL INSTRUCTIONS AND INFORMATION: 1. Your care today has been supervised by a physician who is specially trained in emergency care. Many problems require more than one evaluation for a complete diagnosis and treatment. We recommend that you schedule your follow up appointment as recommended to ensure complete treatment of you illness or injury. If you are unable to obtain follow up care and continue to have a problem, or if your condition worsens, we recommend that you return to the ED. 2. We are not able to safely determine your condition over the phone nor are we able to give sound medical advice over the phone. For these safety reasons, if you call for medical advice we will ask you to come to the ED for further evaluation. 3. If you have any questions regarding these discharge instructions please call the ED at [phone]. SAFETY INFORMATION: In the interest of safety, wellness, and injury prevention; we encourage you to wear your sealbelt, if you smoke; quite smoking, and we encourage family to use a protective helmet for bicycling and other sporting events that present an increased risk for head injury. IF YOUR SYMPTOMS WORSEN OR NEW SYMPTOMS DEVELOP, OR YOU HAVE CONCERNS ABOUT YOUR CONDITION; OR IF YOUR CONDITION WORSENS WHILE YOU ARE WAITING FOR YOUR FOLLOW UP APPOINTMENT; EITHER CONTACT YOUR PRIMARY CARE DOCTOR, THE PHYSICIAN WHOSE NAME AND NUMBER YOU WERE GIVEN, OR RETURN TO THE ED IMMEDIATELY. SHIRAZ COVARRUBIAS APRN Jan 31, 2021 17:31
--- NOTE | 2021-01-31 17:38 | EKG ---
[address] [address] Test Date: 2021-01-31 Test Time: 17:04:10 Pat Name: NUHA ODONNELL Department: Room: Gender: F Bioinformatician: : 1965 Requested By: SHIRAZ COVARRUBIAS Order Number: [id number] Reading MD: Measurements Intervals [place] Rate: 105 P: 36 OR: 148 QRS: -17 QRSD: 76 T: 27 QT: 320 QTc: 427 Interpretive Statements SINUS TACHYCARDIA LEFTWARD AXIS OTHERWISE NORMAL ECG RI6.02 No previous ECG available for comparison
[2021-01-31 17:54] LABS: BASO % 1 % (0-3); EOS % 0 % (0-3); HEMATOCRIT 37.9 % (36.0-47.0); HEMOGLOBIN 12.6 g/dL (12.0-15.5); LYMPH # 1.1 x10^3/uL (1.0-4.8); LYMPH % 28 % (24-48); MEAN CORPUSCULAR HEMOGLOBIN 27 pg (25-35); MEAN CORPUSCULAR HGB CONC 33 g/dL (31-37); MEAN CORPUSCULAR VOLUME 81 fL (79-100); MONO # 0.5 x10^3/uL (0.0-1.1); MONO % 12 % (0-9); NEUT # 2.4 x10^3uL (1.8-7.7); NEUT % 60 % (31-73); PLATELET COUNT 255 x10^3/uL (140-400); RED BLOOD COUNT 4.68 x10^6/uL (3.50-5.40); RED CELL DISTRIBUTION WIDTH 14.4 % (11.5-14.5)
[2021-01-31 18:03] LABS: CREATININE 0.9 mg/dL (0.6-1.0); GFR 79.3; POTASSIUM 3.8 mmol/L (3.5-5.1)
[2021-01-31 18:09] LABS: ALBUMIN 4.3 g/dL (3.4-5.0); ALBUMIN/GLOBULIN RATIO 1.3 (1.0-1.7); TOTAL BILIRUBIN 0.2 mg/dL (0.2-1.0); TOTAL PROTEIN 7.5 g/dL (6.4-8.2)
--- NOTE | 2021-01-31 18:47 | RAD ---
CT head without contrast dated 01/31/2021 6:44 PM Comparison: None CLINICAL INDICATION: Headache TECHNIQUE: Contiguous axial imaging of the head was performed from skull base to vertex. One or more of the following individualized dose reduction techniques were utilized for this examinat ion: 1. Automated exposure control 2. Adjustment of the mA and/or kV according to patient size 3. Use of iterative reconstruction technique. FINDINGS: Ventricles and sulci are within normal limits for age. No midline shift or mass effect. Brain parench yma is of normal attenuation. No hemorrhage or extra-axial collection. Posterior fossa and brainstem unremarkable. Visualized paranasal sinuses and mastoid air cells are clear. No apparent calvarial abnormality. IMPRESSION: No evidence of acute intracranial abnormality. Electronically signed by: Luciano Hughes MD (01/31/2021 6:44 PM) TITI
--- NOTE | 2021-01-31 19:43 | RAD ---
Chest PA and lateral: Reason for examination: Chest pain. The heart size is normal. Mediastinum is unremarkable. Lung moreira show mild increase in lung marking s in the mid to lower right lung field. Mild infiltrates cannot be excluded. No pleural effusions or pneumothorax are seen. No acute bony abnormalities are seen. Impression: Increased markings in the mid to lower right lung field. Cannot exclude mild infiltrates. Recommend c linical correlation and follow-up. Electronically signed by: Madison Holbrook MD (01/31/2021 7:40 PM) MARIELA
[2021-01-31 20:18] VITALS: BP 110/71
== END 2021-01-31 20:38 | disposition home or self-care (01) ==
LOC: ER 16:42
DX: R07.9 Chest pain, unspecified (principal); E78.00 Pure hypercholesterolemia, unspecified; I25.2 Old myocardial infarction; F10.20 Alcohol dependence, uncomplicated; Z95.1 Presence of aortocoronary bypass graft; Z87.891 Personal history of nicotine dependence; Z86.73 Personal history of transient ischemic attack (TIA), and cerebral infarction without residual deficits; Y90.9 Presence of alcohol in blood, level not specified
CPT/HCPCS: 36415; 70450; 71046; 80053; 84484; 85025; 85379; 93005; 96361; 96374; 96375; 99285; J2270; J2405; J7030

== ENCOUNTER 2021-11-08 16:42 | Emergency (ER) | payer MEDICAID, OTHER ==
[~2021-11-08] VITALS: Ht 174 cm; Wt 75.2 kg
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
[2021-11-08 18:05] VITALS: BP 123/90
[2021-11-08] MEDS ORDERED: HYDROcodon/IBUPROFEN 7.5/200MG 1 TAB TABLET PO ONE (18:15)
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
== END 2021-11-08 18:58 | disposition home or self-care (01) ==
LOC: ER 16:42
DX: S80.02XA Contusion of left knee, initial encounter (principal); E78.00 Pure hypercholesterolemia, unspecified; I25.2 Old myocardial infarction; F10.20 Alcohol dependence, uncomplicated; E78.5 Hyperlipidemia, unspecified; G40.909 Epilepsy, unspecified, not intractable, without status epilepticus; Z86.73 Personal history of transient ischemic attack (TIA), and cerebral infarction without residual deficits; Z87.891 Personal history of nicotine dependence; Z95.1 Presence of aortocoronary bypass graft; Y90.9 Presence of alcohol in blood, level not specified; V47.6XXA Car passenger injured in collision with fixed or stationary object in traffic accident, initial encounter; Y93.89 Activity, other specified; Y92.89 Other specified places as the place of occurrence of the external cause; Y99.8 Other external cause status
CPT/HCPCS: 29505; 73564; 73590; 99284